=== PATIENT | male | born 1960 | race Caucasian/White ===

== ENCOUNTER 2018-03-07 15:21 | Emergency (ER) | END 2018-03-07 17:28 | disposition left against medical advice (07) ==

== ENCOUNTER 2018-06-05 07:30 | Day surgery (SDC) | payer OTHER ==
[2018-06-04 17:15] VITALS: Ht 167.6 cm; Wt 98.5 kg
[~2018-06-05] VITALS: Ht 167.6 cm; Wt 98.5 kg
[2018-06-05] VITALS (22 sets, daily range): BP systolic 107–166; BP diastolic 57–101; PULSE 61–87; RESP 10–21
[2018-06-05] MEDS ORDERED: ATOR40TA68 PO (07:59)
[2018-06-05] MEDS ORDERED: METF500T24 PO (08:00)
[2018-06-05] MEDS ORDERED: LEVO25TA50 PO (08:00)
[2018-06-05] MEDS ORDERED: ALLO100T PO (08:01)
[2018-06-05] MEDS ORDERED: ISOS30TA67 PO (08:01)
[2018-06-05] MEDS ORDERED: LISI-471 PO (08:02)
[2018-06-05] MEDS ORDERED: CARV6.2579 PO (08:02)
[2018-06-05] MEDS ORDERED: MIDAZOLAM 1 MG/ML 2 ML INJ ONE (08:30)
[2018-06-05] MEDS ORDERED: LIDOCAINE 1% (MDV) 20 ML INJ ONE (08:30)
[2018-06-05] MEDS ORDERED: IODIXANOL LOCM 100 ML BTL ONE ×4 (08:30→10:27)
[2018-06-05] MEDS ORDERED: SOD CHLORIDE 0.9% 1,000 ML IV SCH ×2 (08:30→10:36)
[2018-06-05] MEDS ORDERED: FENTAnyl 50 MCG/ML VIAL ONE (08:31)
[2018-06-05] MEDS ORDERED: CLOPIDOGREL 300 MG TAB ONE (09:52)
[2018-06-05] MEDS ORDERED: ASPIRIN 325 MG TAB ONE (09:52)
[2018-06-05] MEDS ORDERED: NITROGLYCERIN (IC) 100 MCG/ML INJ ONE (09:55)
[2018-06-05] MEDS ORDERED: HEPARIN 1000 UNITS/ML 10 ML INJ ONE (10:09)
[2018-06-05] MEDS ORDERED: BIVALIRUDIN 250MG /NS 50 ML 50 ML IVPB ONE (10:09)
[2018-06-05] MEDS ORDERED: IODIXANOL LOCM 50 ML BTL ONE (10:10)
[2018-06-05] MEDS ORDERED: IOHEXOL 350MG/ML 50 ML BTL ONE (10:26)
--- NOTE | 2018-06-05 10:41 | PDOCDIS ---
Discharge Instructions CONDITION Millq5Db Patient Condition: [id number] Good HOME CARE INSTRUCTIONS: [id number] Diet Instructions: Ooypb7c Low Fat /Cholesterol ACTIVITY: [id number] Activity Restrictions: [id number] Slowly Increase Activity Avoid heavy lifting (Do not lift more than 5 pounds for 3 days) [address] (For 3 days) Librado Rosenthal DO Jun 05, 2018 10:41
[2018-06-05] MEDS ORDERED: CLOP75TA28 PO (10:42)
--- NOTE | 2018-06-05 10:43 | PDOCDIS ---
Discharge Instructions CONDITION [id number] Patient Condition: [id number] Good HOME CARE INSTRUCTIONS: [id number] Diet Instructions: Ctghw8a Low Fat /Cholesterol ACTIVITY: Tzbhs3Di Activity Restrictions: Sqbuc9j Slowly Increase Activity Avoid heavy lifting (Do not lift more than 5 pounds for 3 days) Do not Drive (For 3 days) OTHER ORDERS: Other Orders: Hold metformin until May Librado Rosenthal DO Jun 05, 2018 10:43
[2018-06-05] MEDS ORDERED: ACETAMINOPHEN 325 MG TAB PO PRN (11:00)
[2018-06-05] MEDS ORDERED: OXYCODONE/ACETAMINOPHEN (5/325) TAB PO PRN (11:00)
[2018-06-05] MEDS ORDERED: AL HYDROX/MG HYDROX/SIMETH 30 ML CUP PO PRN (11:00)
[2018-06-05] MEDS ORDERED: ONDANSETRON 4 MG INJ IV PRN (11:00)
--- NOTE | 2018-06-05 11:02 | OPR ---
Date/Time of Note Date/Time of Note DATE: 06/05/18 TIME: 10:55 Operative Report Procedure Date: Jun 05, 2018 Preoperative Diagnosis Unstable angina Abnormal stress test Postoperative Diagnosis Obstructive coronary artery disease Operation/Procedure Performed Left heart catheterization Right and left coronary angiogram including bypass grafts Interpretation and supervision of right and left coronary angiogram including bypass grafts Left ventricular pressure measurements PCI of ostial ramus intermedius with a placement of a 2.75 x 15 mm Xience drug- eluting stent Right femoral artery approach using ultrasound guidance Surgeon see signature line [employer]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 Anesthesia Type: MAC Estimated Blood Loss: minimal Transfusion none Specimen None Grafts/Implants none Complications none Pt Condition Post Procedure: stable Procedure Description Findings Hemodynamics LV pressure 137/-10 with an EDP of 11 Aortic pressure 113/75 Coronary findings Left main is a large-caliber vessel with mild disease Circumflex is a medium caliber vessel with mild distal disease Ramus intermedius is a medium caliber vessel with ostial 99% stenosis LAD is a medium caliber vessel with a proximal to mid stent with 30-40% stenosis, distal 20% stenosis RCA is a medium caliber vessel and dominant, there is proximal 70% stenosis in the mid 100% stenosis. The mid to distal vessel is seen via the saphenous vein graft injection with mild diffuse disease SVG to the RCA is patent with no significant disease SVG to unknown vessel is occluded PEREZ injection demonstrates it is not anastomosed to a coronary artery Description of procedure Patient brought to the [facility] [employer] after informed consent. Right femoral artery access was obtained using ultrasound guidance and a micropuncture kit with a 5 Norwegian sheath. A JL4 4 5 Norwegian diagnostic catheter was used to do an angiogram of the left system. We next used a 5 Norwegian JR4 catheter to the left ventricle and pressure measures were obtained as well as pullback. We next did an angiogram of the RCA and saphenous vein grafts. We then engaged the left subclavian and switched out for an IM catheter. PEREZ injection demonstrated this was not anastomosed to the coronary artery. Given the severe disease in the ostial ramus intermedius, intervention was performed with the same setting. We initially use heparin for anticoagulation but even after doses, ACT was not therapeutic. We then switched to Angiomax. Patient was loaded with aspirin and 600 of Plavix. A 6 Norwegian sheath was exchanged out. We then went in with a 6 Norwegian XB 3.5 guide catheter. A run through wire was used to cross the lesion. Lesion was predilated and then stented with a 2.75 x 15 mm Xience drug-eluting stent. This was postdilated with the stent delivery system up to approximately 3.1 mm. There was an excellent angiographic result with DOLORES-3 flow with no evidence of dissection. All wires and catheters removed. A 6 Norwegian Angio-Seal was used in the right femoral artery. Patient remained chest pain-free and hemodynamically stable throughout the procedure. Recommendations Dual antiplatelet therapy for minimum of 1 year to maintain stent patency. Findings and recommendations discussed with patient's daughter. Librado Rosenthal DO Jun 05, 2018 11:02
--- NOTE | 2018-06-05 11:40 | NUR ---
PACU NOTES: RECEIVED PATIENT FROM AC/DC REWINDER BY ISRAEL SULLIVAN @ 1053 W/ ANGIOMAX AND COMPLETED @ 1100. NO CHEST PAIN. AWAKE AND ALERT. W/ NS INFUSING ON LEFT AC#20 @ 60 ML/HR. COMPLETED EKG IN PACU. REPORT GIVEN TO ICU ISRAEL PAUL. RIGHT GROIN W/ PERCLOSE AND TEGADERM, NO BLEEDING NO HEMATOMA SOFT TO TOUCH, PEDAL PULSES PALPABLE. DUE TO VOID. BEDREST UNTIL 1600, ANGIOMAX COMPLETED @ 1100. BEL[facility]ER [facility] REPORT GIVEN TO [facility], SPOKE WITH ABEBY ( PATIENTS DAUGHTER ) INFORMED HER THAT PATIENT WILL BE GOING TO ICU AND IF STABLE TO DISCHARGE WILL BE GOING HOME @ 1830 TONIGHT. VERBALIZED UNDERSTANDING.
--- NOTE | 2018-06-05 11:43 | NUR ---
PACU IN: 1053 PACU OUT: 1143
[2018-06-06] MEDS ORDERED: ASPIRIN (EC) 81 MG TAB PO SCH (09:00)
[2018-06-06] MEDS ORDERED: CLOPIDOGREL 75 MG TAB PO SCH (09:00)
== END 2018-06-05 19:00 | disposition home or self-care (01) ==
LOC: SDS 07:30 → ICU 11:40 → SDS 19:00
PROVIDERS: ATTEND Internal Medicine Cardiovascular Disease
DX: I25.110 Atherosclerotic heart disease of native coronary artery with unstable angina pectoris (principal); R94.39 Abnormal result of other cardiovascular function study
CPT/HCPCS: 80048; 82962; 85025; 85610; 85730; 93005; 93459; C1725; C1876; C1887; C1894; C9600; J0583; J1644; J2250; J3010; Q9967; Z7610; J7030